=== PATIENT | female | born 1980 | race Hispanic/Latino ===

== ENCOUNTER 2025-06-15 13:29 | Outpatient (CLI) | payer OTHER | END 2025-06-15 13:30 | disposition home or self-care (01) | LOC: CSHRAD 13:29 | PROVIDERS: ATTEND Family Medicine | DX: M25.561 Pain in right knee (principal); M25.562 Pain in left knee; M25.461 Effusion, right knee ==

== ENCOUNTER 2025-07-24 11:30 | Day surgery (SDC) | payer OTHER ==
[2025-07-18 10:13] VITALS: BMI 52.4
== END 2025-07-24 14:45 | disposition home or self-care (01) ==
LOC: CSHSDC 11:30
PROVIDERS: ATTEND Surgery
PROC: 0DJD8ZZ Inspection of Lower Intestinal Tract, Via Natural or Artificial Opening Endoscopic (ICD-10-PCS; principal; 2025-07-24)
DX: Z12.11 Encounter for screening for malignant neoplasm of colon (principal); I10 Essential (primary) hypertension; E66.9 Obesity, unspecified; Z68.43 Body mass index [BMI] 50.0-59.9, adult; Z90.710 Acquired absence of both cervix and uterus